=== PATIENT | female | born 1955 | race Hispanic/Latino ===

== ENCOUNTER 2017-11-06 06:17 | Day surgery (SDC) | payer OTHER ==
[2017-11-05 16:25] VITALS: BP 148/66
[2017-11-06] VITALS (17 sets, daily range): BP systolic 118–166; BP diastolic 63–75
[~2017-11-06] VITALS: Ht 149.9 cm; Wt 72.9 kg
[~2017-11-06 06:17] MED LIST: ATOR40TA71 PO; CARB300C6 PO; CEFAZOLIN SODIUM 1 GM VIAL IVP SCH; DORZ10DR10 OS; LETR2.5T6 PO; LEVO75TA10 PO; LISI-613 PO; XALA2.5OS OS
[2017-11-06] MEDS ORDERED: ERGO500014 PO (07:05)
[2017-11-06] MEDS ORDERED: CEFAZOLIN SODIUM 1 GM VIAL ONE (07:09)
[2017-11-06] MEDS ORDERED: LACTATED RINGERS 1000ML 1,000 ML IV ONE (07:18)
[2017-11-06] MEDS ORDERED: MIDAZOLAM HCL 1 MG/ML 2ML VIAL ONE (08:23)
[2017-11-06] MEDS ORDERED: FENTANYL CITRATE PF 50 MCG/1 ML 2ML VIAL ONE (08:23)
[2017-11-06] MEDS ORDERED: PROPOFOL 10 MG/ML 20ML VIAL IV ONE (08:23)
[2017-11-06] MEDS ORDERED: LIDOCAINE PF 2% 5ML ABBOJECT ONE (08:23)
[2017-11-06] MEDS ORDERED: DEXAMETHASONE SOD PHOSPHATE 10MG/ML 1ML VIAL ONE (08:23)
[2017-11-06] MEDS ORDERED: GLYCOPYRROLATE 0.2 MG/ML 5 ML VIAL ONE (08:23)
[2017-11-06] MEDS ORDERED: EPHEDRINE SULFATE 50 MG/ML AMPULE ONE (08:41)
[2017-11-06] MEDS ORDERED: BUPIVACAINE/PF 0.25% 30ML VIAL IJ ONE (09:16)
== END 2017-11-06 11:20 | disposition home or self-care (01) ==
LOC: DAH 06:17 → SUH 06:17
PROVIDERS: ATTEND Orthopaedic Surgery
DX: G56.01 Carpal tunnel syndrome, right upper limb (principal); G40.89 Other seizures; E03.8 Other specified hypothyroidism; E78.4 Other hyperlipidemia; A80.9 Acute poliomyelitis, unspecified; E66.9 Obesity, unspecified; Z79.899 Other long term (current) drug therapy; Z98.890 Other specified postprocedural states; Z85.3 Personal history of malignant neoplasm of breast
CPT/HCPCS: 64721; A4649; A4930; A6223; J0690 ×2; J1100; J2001; J2250; J2704; J3010; J3490 ×3; J7120 ×2